=== PATIENT | male | born 1940 | race Caucasian/White ===

== ENCOUNTER 2017-11-17 21:07 | Emergency (ER) | payer MEDICARE, BC ==
[~2017-11-17] VITALS: Ht 177.8 cm; Wt 77.1 kg
[2017-11-17 21:33] LABS: Source, Urine Catheter
[2017-11-17] MEDS ORDERED: OMEPRAZOLE MAGN20 MG PO (21:34)
[2017-11-17] MEDS ORDERED: DONE10 PO (21:34)
[2017-11-17] MEDS ORDERED: QUET25 PO (21:34)
[2017-11-17] MEDS ORDERED: ALPR.5 PO (21:35)
[2017-11-17] MEDS ORDERED: Zoloft100 MG PO (21:35)
[2017-11-17 21:42] LABS: Bilirubin, Urine Neg (Neg); Blood, Urine Neg (Neg); Glucose Qualitative, Urine Neg (Neg); Ketones, Urine Neg (Neg); Leukocyte Esterase, Urine Neg (Neg); Nitrite, Urine Neg (Neg); Protein, Urine Neg (Neg); Urobilinogen, Urine NORM (Normal)
[2017-11-17 21:55] LABS: Appearance, Urine Clear (Clear); Color, Urine Yellow (P-Yellow)
== END 2017-11-18 00:18 | disposition home or self-care (01) ==
LOC: ER 21:07
PROVIDERS: Emergency Medicine
DX: S01.81XA Laceration without foreign body of other part of head, initial encounter (principal); F03.90 Unspecified dementia, unspecified severity, without behavioral disturbance, psychotic disturbance, mood disturbance, and anxiety; W19.XXXA Unspecified fall, initial encounter; Z88.8 Allergy status to other drugs, medicaments and biological substances; Z79.899 Other long term (current) drug therapy
CPT/HCPCS: 70450; 81003; 99284

== ENCOUNTER 2018-06-28 09:45 | Emergency (ER) | payer MEDICARE, BC, OTHER ==
[~2018-06-28] VITALS: Ht 172.7 cm; Wt 59.0 kg
[~2018-06-28 09:45] MED LIST: ALPR.5 PO; DONE10 PO; OMEPRAZOLE MAGN20 MG PO; QUET25 PO; Zoloft100 MG PO
[2018-06-28] MEDS ORDERED: PROC25S PR (09:58)
[2018-06-28] MEDS ORDERED: ZYRTEC10 M1 PO (09:58)
[2018-06-28] MEDS ORDERED: Loperamide2 MG PO (09:58)
[2018-06-28] MEDS ORDERED: ACET325 PO (09:59)
[2018-06-28] MEDS ORDERED: BISA10S PR (09:59)
[2018-06-28] MEDS ORDERED: CEPH500 PO (10:00)
[2018-06-28] MEDS ORDERED: Namenda5 MG PO (10:01)
[2018-06-28] MEDS ORDERED: OMEPRAZOLE MAGN20 MG PO (10:02)
[2018-06-28] MEDS ORDERED: FURO40 PO (10:03)
[2018-06-28] MEDS ORDERED: HYDR1TAB94 PO (10:55)
== END 2018-06-28 15:17 | disposition home or self-care (01) ==
LOC: ER 09:45
DX: F03.90 Unspecified dementia, unspecified severity, without behavioral disturbance, psychotic disturbance, mood disturbance, and anxiety (principal); I10 Essential (primary) hypertension; W18.30XA Fall on same level, unspecified, initial encounter; Z88.8 Allergy status to other drugs, medicaments and biological substances; Z79.899 Other long term (current) drug therapy
CPT/HCPCS: 99283